=== PATIENT | male | born 1965 | race Caucasian/White ===

== ENCOUNTER 2018-11-23 18:44 | Emergency (ER) | payer MEDICARE, MEDICAID ==
--- NOTE | 2018-11-23 19:01 | ER Document Report ---
ED Medical Screen (RME) - General Chief Complaint: Abdominal Pain Stated Complaint: FLANK PAIN Time Seen by Provider: 11/23/18 18:54 Primary Care Provider: GERALDO ODONNELL [Primary Care Provider] - Follow up as needed Mode of Arrival: Ambulatory Information source: Patient Notes: 53-year-old male presented to ED for complaint of possible kidney failure. He states he is a transplant patient and he feels like his new kidney is failing. He states he had nausea vomiting no urination short of breath and feeling horrible. He states he has been out of his transplant medications for over a week. He states he had his transplant done at [facility]. He states he would like to get shipped to [facility] if it is his transplant failing. He has a history of kidney failure, coronary artery disease, heart attack, diabetes, cholesterol, high blood pressure, bypass surgeries and cardiac cath with stents. Patient is alert and oriented respirations regular and unlabored at this time. Vital signs are stable at this time. Patient states he has not voided in a while. I have greeted and performed a rapid initial assessment of this patient. A comprehensive ED assessment and evaluation of the patient, analysis of test results and completion of medical decision making process will be conducted by an additional ED providers. Dictation of this chart was performed using voice recognition software; therefore, there may be some unintended grammatical errors. TRAVEL OUTSIDE OF THE [place] IN LAST 30 DAYS: No - Related Data Allergies/Adverse Reactions: codeine Allergy (Verified 11/23/18 18:59) Doctor's Discharge - Discharge Referrals: GERALDO ODONNELL [Primary Care Provider] - Follow up as needed
[2018-11-23] MEDS ORDERED: ONDANSETRON 4 MG TAB.RAPDIS PO ONE (19:03)
[2018-11-23 19:26] LABS: ABSOLUTE BASOPHILS # (AUTO) 0.1 10^3/uL (0.0-0.2); ABSOLUTE EOSINOPHILS # (AUTO) 0.1 10^3/uL (0.0-0.6); ABSOLUTE LYMPHOCYTES (AUTO) 1.8 10^3/uL (0.5-4.7); ABSOLUTE MONOCYTES (AUTO) 0.4 10^3/uL (0.1-1.4); ABSOLUTE NEUT (AUTO) 4.8 10^3/uL (1.7-8.2); BASOPHILS % (AUTO) 0.9 % (0-2); EOSINOPHILS % (AUTO) 1.8 % (0-6); HEMOGLOBIN 14.8 g/dL (13.5-17.0); LYMPHOCYTES % (AUTO) 25.3 % (13-45); MEAN CORPUSCULAR HEMOGLOBIN 29.5 pg (27.0-33.4); MEAN CORPUSCULAR HGB CONC 34.5 g/dL (32.0-36.0); MEAN CORPUSCULAR VOLUME 86 fl (80-97); MONOCYTES % (AUTO) 5.2 % (3-13); PLATELET COUNT 138 10^3/uL (150-450); RED BLOOD COUNT 5.02 10^6/uL (4.35-5.55); RED CELL DISTRIBUTION WIDTH 15.8 % (11.5-14.0); SEGMENTED NEUTROPHILS % (AUTO) 66.8 % (42-78); TOTAL CELLS COUNTED % (AUTO) 100 %; WHITE BLOOD COUNT 7.2 10^3/uL (4.0-10.5)
[2018-11-23 19:31] LABS: APPEARANCE,URINE CLEAR; BILIRUBIN,URINE NEGATIVE (NEGATIVE); COLOR,URINE YELLOW; GLUCOSE, URINE >=500 mg/dL (NEGATIVE); KETONES,URINE NEGATIVE (NEGATIVE); LEUKOCYTE ESTERASE,URINE NEGATIVE (NEGATIVE); NITRITE,URINE NEGATIVE (NEGATIVE); PROTEIN,URINE NEGATIVE (NEGATIVE); URINE SPECIFIC GRAVITY 1.022; UROBILINOGEN,URINE NEGATIVE mg/dL (<2.0)
[2018-11-23 19:50] LABS: ALANINE AMINOTRANSFERASE 31 U/L (21-72); ALBUMIN 3.8 g/dL (3.5-5.0); ALKALINE PHOSPHATASE 75 U/L (38-126); ANION GAP 7 (5-19); ASPARTATE AMINO TRANSFERASE 21 U/L (17-59); BILIRUBIN,DIRECT 0.4 mg/dL (0.0-0.4); BILIRUBIN,TOTAL 0.4 mg/dL (0.2-1.3); BLOOD UREA NITROGEN 30 mg/dL (7-20); CALCIUM 9.6 mg/dL (8.4-10.2); CARBON DIOXIDE 23 mmol/L (22-30); CHLORIDE 107 mmol/L (98-107); CREATINE KINASE 133 U/L (55-170); GLUCOSE 347 mg/dL (75-110); POTASSIUM 5.9 mmol/L (3.6-5.0); SODIUM 136.5 mmol/L (137-145); TOTAL PROTEIN 6.2 g/dL (6.3-8.2)
[2018-11-23] MEDS ORDERED: INSULIN REG, HUMAN 100 UNIT/ML 3 ML VIAL (PYX) IV ONE (20:26)
[2018-11-23] MEDS ORDERED: SODIUM POLYSTYRENE SULFONATE 15 GM/60 ML PO ONE (20:27)
--- NOTE | 2018-11-23 20:34 | RADIOLOGY REPORT (SQ) ---
EXAM DESCRIPTION: RadLex: US RETROPERITONEUM CLINICAL HISTORY: 53 years Male; History kidney transplant thinks kidney failing TECHNIQUE: Bilateral renal ultrasound was performed. COMPARISON: None. FINDINGS: Transplant kidney is noted in the right iliac fossa, 10 x 5.8 x 5.1 cm. No hydronephrosis. Cortical echogenicity is normal. Cortical thickness is normal, 14 mm. No perinephric fluid. Doppler evaluation not performed, although there is flow based on color Doppler. Bladder is nondistended. [place] kidneys not identified (nephrectomy in 2006) IMPRESSION: 1. Transplant kidney, without hydronephrosis or other acute findings
--- NOTE | 2018-11-23 22:25 | ER Document Report ---
ED General - General Chief Complaint: Abdominal Pain Stated Complaint: FLANK PAIN Time Seen by Provider: 11/23/18 18:54 Primary Care Provider: GERALDO ODONNELL [NO LOCAL MD] - Follow up as needed Mode of Arrival: Ambulatory TRAVEL OUTSIDE OF THE [place] IN LAST 30 DAYS: No - HPI Notes: Patient is a 53-year-old male, status post renal transplant in 2007, who pre sents to the emergency department for evaluation. He states he is urinating less frequently, notes that he is having pain in the area of his transplanted kidney. He notes that he has been out of his transplant medications for about a week. He states this is not abnormal. He states he got them yesterday, started taking them as prescribed. He really cannot tell me what medications he is on. Patient states that normally he urinates every 15 minutes. He states that over the last day he is only urinated 3-4 times. He describes the pain in his abdomen as an aching. Nothing seems to make it better or worse. He has had no fevers or chills. No nausea or vomiting. Normal bowel movements. - Related Data Allergies/Adverse Reactions: codeine Allergy (Verified 11/23/18 18:59) Home Medications: Patient is unable to tell me how medications. He is on Prograf, other antirejection medications, blood pressure and cholesterol medications that he cannot name. Past Medical History - General Information source: Patient - Social History Smoking Status: Current Every Day Smoker Chew tobacco use (# tins/day): No Frequency of alcohol use: None Drug Abuse: None Family History: Reviewed & Not Pertinent Patient has suicidal ideation: No Patient has homicidal ideation: No - Past Medical History Cardiac Medical History: Reports: Hx Coronary Artery Disease, Hx Hypercholesterolemia, Hx Hypertension Endocrine Medical History: Reports: Hx Diabetes Mellitus Type 2 Renal/ Medical History: Reports: Hx End Stage Renal Disease - kidney failure. Denies: Hx Peritoneal Dialysis Past Surgical History: Reports: Hx Cardiac Surgery - stents x 5=6, Hx Kidney (Renal Surgery) - transplant Review of Systems - Review of Systems Constitutional: No symptoms reported EENT: No symptoms reported Cardiovascular: No symptoms reported Respiratory: No symptoms reported Gastrointestinal: See HPI Genitourinary: See HPI Male Genitourinary: No symptoms reported Musculoskeletal: No symptoms reported Skin: No symptoms reported Neurological/Psychological: No symptoms reported Physical Exam - Vital signs Vitals: Temp Pulse Resp BP Pulse Ox 97.5 F 68 18 121/59 L 99 11/23/18 18:57 11/23/18 18:57 11/23/18 18:57 11/23/18 18:57 11/23/18 18:57 - Notes Notes: Vital signs reviewed, please refer to chart. Head is normocephalic, atraumatic. Pupils equal round, reactive to light. Neck is supple without meningismus. Heart is regular rate and rhythm. Lungs are clear to auscultation bilaterally. Abdomen is soft, nontender, normoactive bowel sounds throughout. Able to palpate transplanted kidney in the right abdomen, no significant tenderness. Extremities without cyanosis, clubbing. Posterior calves are nontender. Peripheral pulses are equal. Skin is warm and dry. Patient is awake, alert, neurological exam is nonfocal. Course - Re-evaluation Re-evalutation: 11/23/18 22:29 Patient presents emergency department for evaluation. He states he is urinating less than normal. He states he was off of his transplant medications for some time. He had laboratory investigations and imaging as ordered through triage. Laboratory investigations revealed a creatinine of 1.75, potassium of 5.9. The patient does not know his baseline creatinine. EKG was obtained, which revealed a sinus mechanism, no peaked T waves, no significant abnormalities associated with hyperkalemia. Patient was medicated here with insulin, and appropriate dose for his noted hyperglycemia. He was also given oral Kayexalate. I did speak with Dr. Burkett, on-call courier driver at [facility]. She was able to review his records, determined that his baseline creatinine was 1.5-1.9. She asked that the patient stay until he had a bowel movement, but otherwise felt comfortable with him being discharged for follow-up at the transplant clinic on Tuesday. Findings to patient. He refused to stay until he had a bowel movement. I explained to him the reasoning behind this. I explained to him the significant arrhythmias and possibility of cardiac arrest with hyperkalemia. He voiced understanding to this and still does not want to stay. He understands any worsening or new concerning symptoms should prompt him to immediately return. Otherwise he will follow-up with the transplant clinic on Tuesday. - Vital Signs Vital signs: Temp Pulse Resp BP Pulse Ox 97.5 F 68 18 121/59 L 99 11/23/18 18:57 11/23/18 18:57 11/23/18 18:57 11/23/18 18:57 11/23/18 18:57 - Laboratory Result Diagrams: 11/23/18 19:09 11/23/18 19:09 Laboratory results interpreted by me: 11/23/18 11/23/18 11/23/18 19:09 19:09 19:09 RDW 15.8 H Plt Count 138 L Sodium 136.5 L Potassium 5.9 H BUN 30 H Creatinine 1.75 H Est GFR ( Amer) 49 L Est GFR (Non-Af Amer) 41 L Glucose 347 H Total Protein 6.2 L Urine Glucose (UA) >=500 H - Diagnostic Test Radiology reviewed: Reports reviewed Radiology results interpreted by me: 11/23/18 22:31 Renal Ultrasound 11/23/18 19:02 IMPRESSION: 1. Transplant kidney, without hydronephrosis or other acute findings - EKG Interpretation by Me Additional EKG results interpreted by me: 11/23/18 22:31 Sinus mechanism with a rate of 61 bpm. Normal axis and intervals. Nonspecific ST changes, and some T wave flattening/inversion in the lateral leads concerning for possible ischemia versus strain. No old studies available for comparison. No ST elevation concerning for infarction. Discharge - Discharge Clinical Impression: Right sided abdominal pain, Hyperkalemia, Abnormal renal function Condition: Stable Disposition: HOME, SELF-CARE Instructions: Abdominal Pain ([facility]), Kidney Injury ([facility]) Additional Instructions: Your potassium level was elevated here in the emergency department. You elected to leave prior to having a bowel movement from the Kayexalate. It was discussed with you the risks associated with hyperkalemia, but you have elected to leave anyway. Please avoid eating excessive bananas, apricots, and other high potassium foods. Continue your home medications as prescribed. Follow-up in the transplant clinic on Tuesday as discussed. Return to the emergency department with worsening or new concerning symptoms of any sort. Referrals: LOCALMD,NO [NO LOCAL MD] - Follow up as needed
[2018-11-23 22:56] VITALS: BP 107/67
--- NOTE | 2018-11-23 22:59 | EKG REPORT ---
SEVERITY:- ABNORMAL ECG - SINUS RHYTHM NONSPECIFIC T ABNORMALITIES, LATERAL LEADS : Confirmed by: Pritesh Boyer 23-Nov-2018 22:58:30
== END 2018-11-23 22:45 | disposition home or self-care (01) ==
LOC: ER 18:44
DX: R10.9 Unspecified abdominal pain (principal); E87.5 Hyperkalemia; R94.4 Abnormal results of kidney function studies; Z94.0 Kidney transplant status; T45.1X6A Underdosing of antineoplastic and immunosuppressive drugs, initial encounter; Z91.128 Patient's intentional underdosing of medication regimen for other reason; Z91.14 Patient's other noncompliance with medication regimen; E11.65 Type 2 diabetes mellitus with hyperglycemia; I10 Essential (primary) hypertension; E78.00 Pure hypercholesterolemia, unspecified; Z79.899 Other long term (current) drug therapy; F17.200 Nicotine dependence, unspecified, uncomplicated; Z95.5 Presence of coronary angioplasty implant and graft; Z88.5 Allergy status to narcotic agent
CPT/HCPCS: 93005; 99284; 36415; 82553; 82550; 85025; 80053; 81001; 76770; 93010; A9270 ×2; J1815; S0119

== ENCOUNTER 2019-05-15 00:20 | Emergency (ER) | payer MEDICARE, MEDICAID ==
--- NOTE | 2019-05-15 06:17 | RADIOLOGY REPORT (SQ) ---
Right knee four view on 05/15/2019 at 5:06 AM CLINICAL INDICATION: Trauma, medial knee pain COMPARISON: None FINDINGS: No joint effusion is noted. There are no fractures. Visualized joints are well aligned. No bony abnormality is noted. IMPRESSION: No acute abnormality.
--- NOTE | 2019-05-15 06:36 | ER Document Report ---
HPI - HPI Time Seen by Provider: 05/15/19 06:23 Pain Level: 4 Notes: Patient is a 53-year-old male with history of hypertension, renal transplant, diabetes who presents complaining of right medial knee pain status post injury last night by his dog. Patient states that his dog ran directly into his knee causing pain. He has not noticed any swelling or bruising otherwise. He has been limping since then. The pain does not radiate. Patient states that he does have pain medicine at home that he takes. Denies any headache, fever, head injury, neck pain, URI, sore throat, chest pain, palpitations, syncope, cough, shortness of breath, wheeze, dyspnea, abdominal pain, nausea/vomiting/diarrhea, urinary retention, dysuria, hematuria, loss of control of bowel or bladder, numbness/tingling, saddle anesthesia, muscle paralysis/weakness, or rash. - ROS Systems Reviewed and Negative: Yes All other systems reviewed and negative Past Medical History - Social History Smoking Status: Current Every Day Smoker Family History: Reviewed & Not Pertinent Patient has suicidal ideation: No Patient has homicidal ideation: No - Past Medical History Cardiac Medical History: Reports: Hx Coronary Artery Disease, Hx Hypercholesterolemia, Hx Hypertension Endocrine Medical History: Reports: Hx Diabetes Mellitus Type 2 Renal/ Medical History: Reports: Hx End Stage Renal Disease - kidney failure. Denies: Hx Peritoneal Dialysis Past Surgical History: Reports: Hx Cardiac Surgery - stents x 5=6, Hx Kidney (Renal Surgery) - transplant Vertical Provider Document - CONSTITUTIONAL Agree With Documented VS: Yes Notes: PHYSICAL EXAMINATION: GENERAL: Well-appearing, well-nourished and in no acute distress. LUNGS: Breath sounds clear to auscultation bilaterally and equal. No wheezes rales or rhonchi. HEART: Regular rate and rhythm without murmurs, rubs, gallops. Musculoskeletal: Rt knee: No obvious swelling, ecchymosis, effusion, or deformity. FROM to passive/active. Strength 5+/5. N/V intact distal. + tenderness to the medial knee to palp. Ligamentous grossly stable, limited exam with larger leg size. Joon grossly negative. Patellar grind negative. No calf tenderness. Extremities: No cyanosis, clubbing, or edema b/l. Peripheral pulses 2+. Capillary refill less than 3 seconds. [place] neg b/l. NEUROLOGICAL: Normal speech, limping gait. Normal sensory, motor exams PSYCH: Normal mood, normal affect. SKIN: Warm, Dry, normal turgor, no rashes or lesions noted. - INFECTION CONTROL TRAVEL OUTSIDE OF THE [place] IN LAST 30 DAYS: No Course - Re-evaluation Re-evalutation: 05/15/19 06:34 Patient is an afebrile, well-hydrated, 53-year-old male who presents to the ED with Rt knee pain, suspect contusion. Cannot adequately r/o internal involvement which I reviewed with patient. Vitals are acceptable without any significant tachycardia, tachypnea, or hypoxia. PE is otherwise unremarkable for any neurovascular compromise, obvious tendon/ligament rupture, obvious fracture/dislocation, septic joint. X-ray was unremarkable for any acute pathology. Knee immobilizer and crutches were provided today. Patient declined any Tylenol or ice. Patient is nontoxic-appearing. Patient is able to ambulate and weight-bear although he is limping. No other labs or imaging warranted at this time based on H&P. Conservative measures otherwise for symptoms. Recheck with your PCM in 3-5 days. Consider consult orthopedics. Return to the ED with any worsening/concerning symptoms otherwise as reviewed in discharge. Patient is in agreement. - Vital Signs Vital signs: Temp Pulse Resp BP Pulse Ox 98.3 F 71 20 145/85 H 97 05/15/19 04:20 05/15/19 04:20 05/15/19 02:01 05/15/19 04:20 05/15/19 04:20 Discharge - Discharge Clinical Impression: Right knee pain Qualifiers: Chronicity: acute Qualified Code(s): M25.561 - Pain in right knee Condition: Stable Disposition: HOME, SELF-CARE Additional Instructions: Rest, Ice, Compression, Elevation Use crutches/splint as directed Tylenol/ibuprofen as needed Light stretches daily Strength exercises as able Moist heat and massage may help F/u with your PCP in 3-5 days for a recheck Consider consult(s) with Orthopedics/physical therapy for ongoing/worsening symptoms Return to the ED with any worsening symptoms and/or development of fever, headache, chest pain, palpitations, syncope, shortness of breath, trouble breathing, abdominal pain, n/v/d, muscle weakness/paralysis, numbness/tingling, swelling, redness, or other worsening symptoms that are concerning to you. Forms: Elevated Blood Pressure, Smoking Cessation Education Referrals: [facility] [Provider Group] - Follow up as needed
[2019-05-15 07:27] VITALS: BP 139/84
== END 2019-05-15 07:26 | disposition home or self-care (01) ==
LOC: ER 00:20
DX: M25.561 Pain in right knee (principal); W54.1XXA Struck by dog, initial encounter; F17.200 Nicotine dependence, unspecified, uncomplicated; E78.00 Pure hypercholesterolemia, unspecified; E11.9 Type 2 diabetes mellitus without complications; I12.0 Hypertensive chronic kidney disease with stage 5 chronic kidney disease or end stage renal disease; N18.6 End stage renal disease; Z94.0 Kidney transplant status
CPT/HCPCS: 73564; L1830; 99283

== ENCOUNTER 2019-06-10 19:37 | Emergency (ER) | payer MEDICARE, MEDICAID ==
[2019-06-10 20:32] LABS: ABSOLUTE EOSINOPHILS # (AUTO) 0.1 10^3/uL (0.0-0.6); ABSOLUTE LYMPHOCYTES (AUTO) 1.5 10^3/uL (0.5-4.7); ABSOLUTE MONOCYTES (AUTO) 0.4 10^3/uL (0.1-1.4); ABSOLUTE NEUT (AUTO) 5.4 10^3/uL (1.7-8.2); BASOPHILS % (AUTO) 0.6 % (0-2); EOSINOPHILS % (AUTO) 0.7 % (0-6); HEMOGLOBIN 14.8 g/dL (13.5-17.0); LYMPHOCYTES % (AUTO) 20.2 % (13-45); MEAN CORPUSCULAR HEMOGLOBIN 28.3 pg (27.0-33.4); MEAN CORPUSCULAR HGB CONC 33.6 g/dL (32.0-36.0); MEAN CORPUSCULAR VOLUME 84 fl (80-97); PLATELET COUNT 125 10^3/uL (150-450); RED BLOOD COUNT 5.22 10^6/uL (4.35-5.55); SEGMENTED NEUTROPHILS % (AUTO) 73.5 % (42-78); TOTAL CELLS COUNTED % (AUTO) 100 %; WHITE BLOOD COUNT 7.3 10^3/uL (4.0-10.5)
[2019-06-10] MEDS ORDERED: ASPIRIN 81 MG TABLET, CHEWABLE PO ONE (20:37)
[2019-06-10] MEDS ORDERED: NITROGLYCERIN 0.4 MG/TAB 25 TAB/BOTTLE SL PRN (20:38)
[2019-06-10] MEDS ORDERED: NORMAL SALINE 250 ML IV ONE (20:40)
--- NOTE | 2019-06-10 20:42 | EKG REPORT ---
SEVERITY:- ABNORMAL ECG - SINUS RHYTHM ABNORMAL T, CONSIDER ISCHEMIA, LATERAL LEADS : Confirmed by: Pritesh Boyer 10-Jun-2019 20:41:51
[2019-06-10 20:43] LABS: INTERNATIONAL RATION (INR) 0.88; PROTHROMBIN TIME 11.9 SEC (11.4-15.4)
--- NOTE | 2019-06-10 20:47 | ER Document Report ---
ED Cardiac - General Chief Complaint: Chest Pain Stated Complaint: CHEST PAIN Time Seen by Provider: 06/10/19 20:19 Information source: Patient Notes: 53-year-old male with history of coronary artery disease. CABG in 2001 with 2 bypass grafts. Patient now reports she has at least 5 or 6 stents in his heart. Patient reports starting this a.m. around 3:00 in the morning he noted that he was short of breath. He then reports he went to sleep and woke up around 9:00 AM having chest pain in the left chest area just below the nipple. Nonradiating. Patient denies any shortness of breath at that time or nausea or vomiting. Denies sweats patient reports he took an aspirin 81 mg at that time and later on around 3:00 during the day when he awakened for the second time of the day he had continued pain that was about 7 or 8 out of 10. Same location nonradiating sharp in nature nonreproducible. Patient took another and 81 mg aspirin at that time. Patient states that his pain has continued therefore he decided to come to the emergency department. Patient has a history of hypertension tobacco abuse diabetes increased cholesterol and chronic kidney disease. Patient is status post kidney transplant in 2006 that was performed at [facility] in [facility]. Patient states his cardiology care is also at [facility]. TRAVEL OUTSIDE OF THE [place] IN LAST 30 DAYS: No - HPI Patient complains to provider of: Chest pain, Other - Sharp in nature nonradiating Was the onset of pain: Gradual Chest pain location: Under breast - Left-sided under the breasts. Nonradiating sharp chest pain nonreproducible Quality of pain: Severe, Sharp Severity now: Moderate Severity at worst: Severe Pain level currently: 4 Chest pain precipitating factors: At Rest Cardiac risk factors: Diabetes, Hypertension, Smoker, Dyslipidemia Positive cardiac history: Yes Associated symptoms: Shortness of breath Exacerbated by: Other - Chest pains occurs at rest patient has not been exerting himself today. - Related Data Allergies/Adverse Reactions: codeine Allergy (Verified 06/10/19 20:09) Past Medical History - Social History Smoking Status: Current Every Day Smoker Chew tobacco use (# tins/day): No Frequency of alcohol use: None Drug Abuse: None Lives with: Alone, Family Family History: Reviewed & Not Pertinent, Other - Polycystic kidney disease Patient has suicidal ideation: No Patient has homicidal ideation: No - Past Medical History Cardiac Medical History: Reports: Hx Coronary Artery Disease, Hx Hypercholesterolemia, Hx Hypertension Endocrine Medical History: Reports: Hx Diabetes Mellitus Type 2 Renal/ Medical History: Reports: Hx End Stage Renal Disease - kidney failure. Denies: Hx Peritoneal Dialysis Past Surgical History: Reports: Hx Cardiac Surgery - stents x 5=6, Hx Kidney (Renal Surgery) - transplant Review of Systems - Review of Systems Cardiovascular: See HPI Physical Exam - Vital signs Vitals: Pulse Ox 98 06/10/19 19:38 Interpretation: Normal - General General appearance: Appears well, Alert - HEENT Head: Normocephalic, Atraumatic Eyes: Normal Pupils: PERRL - Respiratory Respiratory status: No respiratory distress Chest status: Nontender Breath sounds: Normal Chest palpation: Normal - Cardiovascular Rhythm: Regular Heart sounds: Normal auscultation Murmur: No - Abdominal Inspection: Normal Distension: No distension Bowel sounds: Normal Tenderness: Nontender Organomegaly: No organomegaly - Back Back: Normal, Nontender - Extremities General upper extremity: Normal inspection, Nontender, Normal color, Normal ROM, Normal temperature General lower extremity: Normal inspection, Nontender, Normal color, Normal ROM, Normal temperature, Normal weight bearing. No: Dakotah's sign - Neurological Neuro grossly intact: Yes Cognition: Normal Orientation: AAOx4 Jenna Coma Scale Eye Opening: Spontaneous Jenna Coma Scale Verbal: Oriented [place] Coma Scale Motor: Obeys Commands [place] Coma Scale Total: 15 Speech: Normal Motor strength normal: LUE, RUE, LLE, RLE Sensory: Normal - Psychological Associated symptoms: Normal affect, Normal mood - Skin Skin Temperature: Warm Skin Moisture: Dry Skin Color: Normal Course - Re-evaluation Re-evalutation: 06/10/19 21:41 Patient is chest pain-free after 1 sublingual nitroglycerin. Currently patient's lab work shows a troponin that is normal at this time. Patient has a creatinine of 1.6 which he says is his baseline and his blood sugar is elevated greater than 200 at this time. Patient is resting comfortably in the bed not showing any signs of distress. Plan is to repeat EKG at this time also orders for a d-dimer and also orders for a repeat troponin in 2 hours. 06/11/19 01:15 Patient remains hemodynamically stable and is not having any chest pain at this time. Patient's d-dimer is 0.70. I doubt that patient is having a pulmonary embolus inasmuch as there is no tachycardia no shortness of breath no discomfort at this time and a normal troponin and a normal sinus rhythm rate of 61. Smudges patient is a renal failure patient with a transplant kidney am diaz spicious that the d-dimer elevation may be related to that condition, and does not represent suggestion of pulmonary embolus. 06/11/19 01:17 Discussed case with dividing cardiology Dr. isabel GAN. Once bed assignment has been establish we will hear back from [facility]. - Vital Signs Vital signs: Temp Pulse Resp BP Pulse Ox 98.4 F 62 13 125/91 H 96 06/11/19 00:07 06/10/19 20:13 06/10/19 23:01 06/10/19 23:01 06/10/19 23:01 - Laboratory Result Diagrams: 06/10/19 20:19 06/10/19 20:19 Laboratory results interpreted by me: 06/10/19 06/10/19 06/10/19 20:19 20:19 20:19 RDW 16.0 H Plt Count 125 L D-Dimer 0.70 H Sodium 136.4 L Potassium 5.3 H BUN 32 H Creatinine 1.63 H Est GFR ( Amer) 54 L Est GFR (MDRD) Non-Af 44 L Glucose 241 H Total Protein 6.2 L - EKG Interpretation by Me Additional EKG results interpreted by me: 06/10/19 21:09 12-lead EKG done at 1956 today shows normal sinus rhythm rate of 61 abnormal T waves in the lateral chest and limb leads. Consider ischemia. Had a normal sinus rhythm without T wave inversions significantly in the limb leads chest leads as they are today. No acute ST elevations to suggest a STEMI at this time on today's EKG. Discharge - Discharge Clinical Impression: Unstable angina Condition: Stable Disposition: [facility]
[2019-06-10 20:54] LABS: ALBUMIN 3.8 g/dL (3.5-5.0); ALKALINE PHOSPHATASE 55 U/L (38-126); ANION GAP 6 (5-19); ASPARTATE AMINO TRANSFERASE 17 U/L (17-59); BILIRUBIN,DIRECT 0.3 mg/dL (0.0-0.4); BILIRUBIN,TOTAL 0.5 mg/dL (0.2-1.3); BLOOD UREA NITROGEN 32 mg/dL (7-20); CALCIUM 9.2 mg/dL (8.4-10.2); CARBON DIOXIDE 23 mmol/L (22-30); CHLORIDE 107 mmol/L (98-107); CREATINE KINASE 84 U/L (55-170); GLUCOSE 241 mg/dL (75-110); POTASSIUM 5.3 mmol/L (3.6-5.0); TOTAL PROTEIN 6.2 g/dL (6.3-8.2)
[2019-06-10 21:05] LABS: CREATINE KINASE MB 1.53 ng/mL (<4.55)
[2019-06-10 21:06] LABS: TROPONIN I < 0.012 ng/mL
--- NOTE | 2019-06-10 21:28 | RADIOLOGY REPORT (SQ) ---
XR CHEST 1 VIEW CLINICAL STATEMENT: cp COMPARISON: None FINDINGS: Heart is moderately enlarged, status post median sternotomy. There is no focal lung consolidation or pleural effusion. No evidence of pulmonary edema or pneumothorax. IMPRESSION: No acute cardiopulmonary disease.
--- NOTE | 2019-06-11 00:17 | EKG REPORT ---
SEVERITY:- ABNORMAL ECG - SINUS RHYTHM ABNORMAL T, CONSIDER ISCHEMIA, LATERAL LEADS : Confirmed by: Pritesh Boyer 11-Jun-2019 00:16:37
[2019-06-11 02:05] LABS: APPEARANCE,URINE CLEAR; BILIRUBIN,URINE NEGATIVE (NEGATIVE); COLOR,URINE YELLOW; GLUCOSE, URINE >=500 mg/dL (NEGATIVE); KETONES,URINE NEGATIVE (NEGATIVE); LEUKOCYTE ESTERASE,URINE NEGATIVE (NEGATIVE); NITRITE,URINE NEGATIVE (NEGATIVE); PROTEIN,URINE NEGATIVE (NEGATIVE); UROBILINOGEN,URINE NEGATIVE mg/dL (<2.0)
[2019-06-11] MEDS ORDERED: MORPHINE SULFATE 10 MG/ML INJ IV ONE (03:10)
[2019-06-11 03:24] VITALS: BP 170/86
--- NOTE | 2019-06-11 08:03 | EKG REPORT ---
SEVERITY:- ABNORMAL ECG - SINUS RHYTHM ABNORMAL T, CONSIDER ISCHEMIA, LATERAL LEADS : Confirmed by: Pritesh Boyer 11-Jun-2019 08:02:57
== END 2019-06-11 03:20 | disposition short-term general hospital (02) ==
LOC: ER 19:37
DX: I20.0 Unstable angina (principal); R07.9 Chest pain, unspecified; R06.02 Shortness of breath; F17.200 Nicotine dependence, unspecified, uncomplicated; E78.00 Pure hypercholesterolemia, unspecified; E11.22 Type 2 diabetes mellitus with diabetic chronic kidney disease; I12.0 Hypertensive chronic kidney disease with stage 5 chronic kidney disease or end stage renal disease; N18.6 End stage renal disease; Z88.6 Allergy status to analgesic agent; Z95.1 Presence of aortocoronary bypass graft
CPT/HCPCS: 93005; 99285; 96361; 96374; 36415; 82553; 82550; 85025; 85610; 80053; 81001; 84484; 85379; 71045; 93010; A9270 ×2; J2270; J7050

== ENCOUNTER 2020-04-07 13:01 | Emergency (ER) | payer MEDICARE, MEDICAID ==
[2020-04-07] MEDS ORDERED: MORPHINE SULFATE 10 MG/ML INJ IV ONE ×2 (13:59→16:43)
[2020-04-07] MEDS ORDERED: ASPIRIN 81 MG TABLET, CHEWABLE PO ONE (13:59)
[2020-04-07] MEDS ORDERED: ONDANSETRON HCL INJ/PF 4 MG/2 ML SDV IV ONE (14:00)
[2020-04-07] MEDS ORDERED: NITROGLYCERIN 0.4 MG/TAB 25 TAB/BOTTLE SL PRN (14:03)
--- NOTE | 2020-04-07 14:03 | ER Document Report ---
ED General - General Chief Complaint: Chest Pain Stated Complaint: CHEST PAIN Time Seen by Provider: 04/07/20 13:48 TRAVEL OUTSIDE OF THE [place] IN LAST 30 DAYS: No - HPI Notes: Patient is a 54-year-old male with a history of diabetes, coronary artery disease, status post renal transplant, who presents to the emergency department for evaluation of chest pain. He states is been ongoing for the last 5 days. It was intermittent but it has now become constant. He currently rates an 8 out of 10. He describes it as a "dull and heavy" pain. He tried some nitroglycerin last night which she states did not help. He states that he has some pain in his left arm with associated heaviness. He has some associated nausea, denies any associated diaphoresis, shortness of breath, near syncope. The patient had a heart catheterization 2 months ago, was told he would likely need CABG, that the heart catheterization revealed at least two-vessel disease. He had another heart catheterization by his primary labor expediter, Dr. Espinosa at [facility], 1 month later. Another stent was placed at that time. - Related Data Allergies/Adverse Reactions: codeine Allergy (Verified 04/07/20 13:44) Home Medications: Metformin. Nitro Past Medical History - General Information source: Patient - Social History Smoking Status: Current Every Day Smoker Family History: Reviewed & Not Pertinent, Malignancy - Prostate cancer in father, Other - Polycystic kidney disease - Past Medical History Cardiac Medical History: Reports: Hx Coronary Artery Disease, Hx Hypercholeste rolemia, Hx Hypertension Pulmonary Medical History: Reports: Hx COPD Endocrine Medical History: Reports: Hx Diabetes Mellitus Type 2 Renal/ Medical History: Reports: Hx Renal Insufficiency - Status post transplant. Denies: Hx Peritoneal Dialysis Past Surgical History: Reports: Hx Cardiac Surgery - stents x 5=6, Hx Kidney (Renal Surgery) - transplant Review of Systems - Review of Systems Constitutional: No symptoms reported EENT: No symptoms reported Cardiovascular: See HPI Respiratory: No symptoms reported Gastrointestinal: See HPI Genitourinary: No symptoms reported Musculoskeletal: No symptoms reported Skin: No symptoms reported Neurological/Psychological: No symptoms reported -: Yes All other systems reviewed and negative Physical Exam - Vital signs Vitals: Temp Pulse Resp BP Pulse Ox 98.3 F 88 16 149/86 H 100 04/07/20 13:16 04/07/20 13:16 04/07/20 13:16 04/07/20 13:16 04/07/20 13:16 - Notes Notes: This is a 54-year-old male who appears much older than his stated age, no acute distress. He smells strongly of cigarette smoke. Vital signs reviewed, please refer to chart. Head is normocephalic, atraumatic. Pupils equal round, reactive to light. Neck is supple without meningismus. Heart is regular rate and rhythm. Lungs are clear to auscultation bilaterally. Abdomen is soft, nontender, normoactive bowel sounds throughout. 1+ pitting pretibial edema bilaterally. Posterior calves are nontender. Peripheral pulses are equal. Skin is warm and dry. Patient is awake, alert, neurological exam is nonfocal. Course - Re-evaluation Re-evalutation: 04/07/20 14:02 Patient presents to the emergency department for evaluation of chest pain. He states he has been taking his medications as prescribed. He was placed on a library monitor. Laboratory investigations and EKG were obtained. Patient's EKG does show new lateral T wave inversions and ST changes concerning for ischemia. Patient is given aspirin, nitroglycerin, morphine. Awaiting lab results, we will continue to monitor. 04/07/20 16:43 Patient's pain was not affected by the nitroglycerin, and the morphine helped o nly briefly. For the morphine has been ordered. Patient's first troponin is undetectable. Second troponin yet to be drawn. His EKG does show changes. I spoke with his labor expediter, Dr. Ernesto Espinosa, who states that the patient has been hesitant to have a CABG. He did have a high risk intervention in the RCA performed last month. He recommends transfer of this patient to [facility] for further care. He will be the accepting physician. I did order a heparin drip. I will contact the transfer center at [place]. - Vital Signs Vital signs: Temp Pulse Resp BP Pulse Ox 98.3 F 88 16 153/78 H 95 04/07/20 13:16 04/07/20 13:16 04/07/20 14:30 04/07/20 14:30 04/07/20 15:00 - Laboratory Result Diagrams: 04/07/20 13:40 04/07/20 13:40 Laboratory results interpreted by me: 04/07/20 04/07/20 13:40 13:40 RDW 15.4 H Plt Count 137 L Chloride 108 H Carbon Dioxide 21 L BUN 28 H Creatinine 1.61 H Est GFR ( Amer) 54 L Est GFR (MDRD) Non-Af 45 L Glucose 244 H Total Protein 6.0 L - Diagnostic Test Radiology reviewed: Reports reviewed Radiology results interpreted by me: 04/07/20 16:44 Chest X-Ray 04/07/20 13:58 IMPRESSION: 1. Examination is somewhat limited as above. Slight linear subsegmental density in the left lower lung zone may represent atelectasis. 2. Cardiomegaly, stable finding. Discharge - Discharge Clinical Impression: Abnormal EKG Chest pain Qualifiers: Chest pain type: unspecified Qualified Code(s): R07.9 - Chest pain, unspecified Condition: Stable Disposition: [facility] Admitting Provider: Dr. Espinosa
[2020-04-07 14:11] LABS: ABSOLUTE EOSINOPHILS # (AUTO) 0.1 10^3/uL (0.0-0.6); ABSOLUTE LYMPHOCYTES (AUTO) 1.4 10^3/uL (0.5-4.7); ABSOLUTE MONOCYTES (AUTO) 0.4 10^3/uL (0.1-1.4); ABSOLUTE NEUT (AUTO) 5.2 10^3/uL (1.7-8.2); BASOPHILS % (AUTO) 0.6 % (0-2); HEMOGLOBIN 15.2 g/dL (13.5-17.0); LYMPHOCYTES % (AUTO) 19.7 % (13-45); MEAN CORPUSCULAR HGB CONC 34.5 g/dL (32.0-36.0); MEAN CORPUSCULAR VOLUME 84 fl (80-97); MONOCYTES % (AUTO) 5.8 % (3-13); PLATELET COUNT 137 10^3/uL (150-450); RED BLOOD COUNT 5.22 10^6/uL (4.35-5.55); RED CELL DISTRIBUTION WIDTH 15.4 % (11.5-14.0); SEGMENTED NEUTROPHILS % (AUTO) 72.9 % (42-78); TOTAL CELLS COUNTED % (AUTO) 100 %; WHITE BLOOD COUNT 7.1 10^3/uL (4.0-10.5)
[2020-04-07 14:20] LABS: ALBUMIN 3.6 g/dL (3.5-5.0); ALKALINE PHOSPHATASE 65 U/L (38-126); ANION GAP 8 (5-19); ASPARTATE AMINO TRANSFERASE 19 U/L (17-59); BILIRUBIN,DIRECT 0.2 mg/dL (0.0-0.4); BILIRUBIN,TOTAL 0.4 mg/dL (0.2-1.3); BLOOD UREA NITROGEN 28 mg/dL (7-20); CALCIUM 9.4 mg/dL (8.4-10.2); CARBON DIOXIDE 21 mmol/L (22-30); CHLORIDE 108 mmol/L (98-107); CREATINE KINASE 128 U/L (55-170); GLUCOSE 244 mg/dL (75-110)
[2020-04-07 14:30] LABS: CREATINE KINASE MB 1.76 ng/mL (<4.55)
[2020-04-07 14:31] LABS: TROPONIN I < 0.012 ng/mL
--- NOTE | 2020-04-07 15:17 | RADIOLOGY REPORT (SQ) ---
EXAM DESCRIPTION: CHEST SINGLE VIEW IMAGES COMPLETED DATE/TIME: 04/07/2020 2:57 pm REASON FOR STUDY: chest pain x 5 days cardiac hx COMPARISON: 06/10/2019 EXAM PARAMETERS: NUMBER OF VIEWS: One view. TECHNIQUE: Single frontal radiographic view of the chest acquired. RADIATION DOSE: NA LIMITATIONS: None. FINDINGS: LUNGS AND PLEURA: Slight linear subsegmental density in the left lower lung zone may repr esent atelectasis. The costophrenic angles are not entirely included on the image. No evidence of p neumothorax. MEDIASTINUM AND HILAR STRUCTURES: No masses. Contour normal. HEART AND VASCULAR STRUCTURES: Cardiomegaly, unchanged finding. Normal vasculature. BONES: No acute findings. HARDWARE: Prior anterior median sternotomy. Stable appearing fractured first sternal wire. OTHER: No other significant finding. IMPRESSION: 1. Examination is somewhat limited as above. Slight linear subsegmental density in the left lower lung zone may represent atelectasis. 2. Cardiomegaly, stable finding. TECHNICAL DOCUMENTATION: JOB ID: [id number] 2010 [employer]- All Rights Reserved Reading location - IP/workstation name: [email or web address]
[2020-04-07] MEDS ORDERED: HEPARIN SOD (PORCINE) 1,000 UNIT/ML 10 ML VIAL IV ONE (16:40)
[2020-04-07] MEDS ORDERED: HEPARIN SODIUM,PORCINE/D5W 25,000 UNIT/250 ML RTUINJ IV PRN (16:40)
[2020-04-07 17:21] LABS: INTERNATIONAL RATION (INR) 0.85; PROTHROMBIN TIME 11.8 SEC (11.4-15.4)
[2020-04-07 17:22] LABS: PARTIAL THROMBOPLASTIN TIME 24.5 SEC (23.5-35.8)
[2020-04-07 18:13] LABS: ABSOLUTE BASOPHILS # (AUTO) 0.1 10^3/uL (0.0-0.2); ABSOLUTE EOSINOPHILS # (AUTO) 0.1 10^3/uL (0.0-0.6); ABSOLUTE LYMPHOCYTES (AUTO) 1.5 10^3/uL (0.5-4.7); ABSOLUTE MONOCYTES (AUTO) 0.4 10^3/uL (0.1-1.4); ABSOLUTE NEUT (AUTO) 4.2 10^3/uL (1.7-8.2); BASOPHILS % (AUTO) 0.8 % (0-2); EOSINOPHILS % (AUTO) 0.9 % (0-6); HEMATOCRIT 42.9 % (37.9-51.0); HEMOGLOBIN 14.5 g/dL (13.5-17.0); LYMPHOCYTES % (AUTO) 24.7 % (13-45); MEAN CORPUSCULAR HEMOGLOBIN 28.7 pg (27.0-33.4); MEAN CORPUSCULAR HGB CONC 33.8 g/dL (32.0-36.0); MEAN CORPUSCULAR VOLUME 85 fl (80-97); MONOCYTES % (AUTO) 6.1 % (3-13); PLATELET COUNT 119 10^3/uL (150-450); RED BLOOD COUNT 5.06 10^6/uL (4.35-5.55); RED CELL DISTRIBUTION WIDTH 15.6 % (11.5-14.0); SEGMENTED NEUTROPHILS % (AUTO) 67.5 % (42-78); TOTAL CELLS COUNTED % (AUTO) 100 %; WHITE BLOOD COUNT 6.3 10^3/uL (4.0-10.5)
[2020-04-07] MEDS ORDERED: HEPARIN SOD (PORCINE) 1,000 UNIT/ML 10 ML VIAL IV PRN (19:41)
[2020-04-07 20:41] LABS: APPEARANCE,URINE CLEAR; BILIRUBIN,URINE NEGATIVE (NEGATIVE); COLOR,URINE YELLOW; GLUCOSE, URINE >=500 mg/dL (NEGATIVE); KETONES,URINE NEGATIVE (NEGATIVE); LEUKOCYTE ESTERASE,URINE NEGATIVE (NEGATIVE); NITRITE,URINE NEGATIVE (NEGATIVE); PROTEIN,URINE NEGATIVE (NEGATIVE); UROBILINOGEN,URINE NEGATIVE mg/dL (<2.0)
[2020-04-07] MEDS: MORPHINE SULFATE 10 MG/ML INJ IV PRN (21:04)
[2020-04-07] MEDS ORDERED: INSULIN LISPRO 1 UNIT SQ SCH (22:00)
[2020-04-07] MEDS ORDERED: ATORVASTATIN CALCIUM 80 MG TABLET PO SCH (22:00)
[2020-04-07] MEDS ORDERED: INSULIN GLARGINE,HUM.REC.ANLOG 1,000 UNIT/10 ML VIAL SUBCUT SCH (22:30)
--- NOTE | 2020-04-07 22:36 | EKG REPORT ---
SEVERITY:- ABNORMAL ECG - SINUS RHYTHM ABNORMAL T, CONSIDER ISCHEMIA, LATERAL LEADS VS LVH : Confirmed by: Pritesh Boyer 07-Apr-2020 22:35:46
[2020-04-08] MEDS: MORPHINE SULFATE 10 MG/ML INJ IV PRN (03:54)
[2020-04-08 08:24] VITALS: BP 173/89
[2020-04-08] MEDS ORDERED: TACROLIMUS ANHYDROUS 1 MG CAPSULE PO SCH (10:00)
[2020-04-08] MEDS ORDERED: CHOLECALCIFEROL (D3) 1,000 UNIT (25 MCG) TABLET PO SCH (10:00)
[2020-04-08] MEDS ORDERED: MYCOPHENOLATE SODIUM 540 MG PO SCH (10:00)
[2020-04-08] MEDS ORDERED: (PENDING PHARMACY ID) (Icosapent Ethyl [Vascepa] 2 GM) PO SCH (10:00)
[2020-04-08] MEDS ORDERED: LISINOPRIL 5 MG TABLET PO SCH (10:00)
[2020-04-08] MEDS ORDERED: ISOSORBIDE MONONITRATE 30 MG TAB.ER.24H PO SCH (10:00)
[2020-04-08] MEDS ORDERED: CLOPIDOGREL BISULFATE 75 MG TABLET PO SCH (10:00)
[2020-04-08] MEDS ORDERED: METOPROLOL TARTRATE 100 MG TABLET PO SCH (10:00)
[2020-04-08] MEDS ORDERED: PANTOPRAZOLE SODIUM 40 MG TABLET.DR PO SCH (10:00)
[2020-04-08] MEDS ORDERED: ASPIRIN 81 MG TABLET, ENT COATED PO SCH (10:00)
[2020-04-08] MEDS ORDERED: PREDNISONE 5 MG TABLET PO SCH (10:00)
[2020-04-08] MEDS ORDERED: RANOLAZINE 500 MG TAB.SR.12H PO SCH (10:00)
[2020-04-08] MEDS ORDERED: FAMOTIDINE 20 MG TABLET PO SCH (10:00)
[2020-04-08] MEDS ORDERED: (PENDING PHARMACY ID) (Esomeprazole Magnesium [Esomeprazole Magnesium] 40 MG) PO SCH (10:00)
== END 2020-04-08 09:38 | disposition short-term general hospital (02) ==
LOC: ER 13:01
DX: R07.9 Chest pain, unspecified (principal); R94.31 Abnormal electrocardiogram [ECG] [EKG]; I11.9 Hypertensive heart disease without heart failure; I25.10 Atherosclerotic heart disease of native coronary artery without angina pectoris; E11.9 Type 2 diabetes mellitus without complications; M79.602 Pain in left arm; R60.0 Localized edema; R11.0 Nausea; J44.9 Chronic obstructive pulmonary disease, unspecified; F17.200 Nicotine dependence, unspecified, uncomplicated; Z95.5 Presence of coronary angioplasty implant and graft; Z79.84 Long term (current) use of oral hypoglycemic drugs; Z79.899 Other long term (current) drug therapy; Z94.0 Kidney transplant status; Z88.6 Allergy status to analgesic agent; Z88.5 Allergy status to narcotic agent
CPT/HCPCS: 93005; 99281; 96372; 96375; 96365; 96366 ×2; 36415; 82553; 82962; 82550; 85025; 85610; 85730; 80053; 81001; 84484; 71045; 93010; J1644 ×2; A9270 ×4; J2270 ×2; J2405; J1815